=== PATIENT | female | born 1995 | race Two or more races ===

== ENCOUNTER 2024-08-14 15:56 | Day surgery (SDC) | payer BC ==
[2024-08-14 16:24] VITALS: BMI 39.4
== END 2024-08-14 17:30 | disposition home or self-care (01) ==
LOC: CSHLD/OP 15:56
PROVIDERS: ATTEND Obstetrics & Gynecology
DX: O41.03X0 Oligohydramnios, third trimester, not applicable or unspecified (principal); Z3A.35 35 weeks gestation of pregnancy
CPT/HCPCS: 96360; 99282

== ENCOUNTER 2024-08-23 11:43 | Inpatient (IN) | payer BC, OTHER ==
[2024-08-23] MEDS ORDERED: hydrALAZINE 20 MG/ML VIAL SLOW IVP PRN (12:37)
[2024-08-23] MEDS ORDERED: Diphenoxylate HCl/Atropine Tablet PO PRN (14:35)
[2024-08-23] MEDS ORDERED: Methylergonovine 0.2 MG/ML VIAL IM PRN (14:35)
[2024-08-23] MEDS ORDERED: fentaNYL 50 mcg/mL 1 mL Vial SLOW IVP PRN (14:35)
[2024-08-23] MEDS ORDERED: Carboprost 250 MCG/ML AMP IM PRN (14:35)
[2024-08-23] MEDS ORDERED: Lidocaine 1% (PF) 30 ML VIAL SC PRN (14:47)
[2024-08-23 17:16] VITALS: BMI 39.7
[2024-08-23 17:26] LABS: Hematocrit 31.2 % (34.9-44.5); Hemoglobin 10.3 g/dL (12.0-15.5); Mean Corpuscular Hemoglobin 30.4 pg (27.0-33.0); Mean Platelet Volume 10.2 fL (7.4-10.4); Platelet Count 208 10x3/uL (150-450); Red Blood Cell (RBC) Count 3.39 10x6/uL (3.90-5.03); White Blood Cell (WBC) Count 9.9 10x3/uL (3.5-10.5)
[2024-08-23 17:48] LABS: HBsAg Index 0.22 S/CO (0-0.99); Hep B Surf Ag - L&D Non-Reactive S/CO (NonReactive)
[2024-08-23 17:49] LABS: Syphilis Antibody Nonreactive (Nonreactive); Syphilis Antibody Index 0.06 S/CO (<1.00 Non-Reactive)
[2024-08-23] MEDS: Penicillin G Potassium 5 MILL.UNITS in Sodium Chloride 0.9% 100 ML IVPB SCH (23:09)
[2024-08-24] MEDS: Misoprostol 100 MCG TAB VAG SCH (02:59)
[2024-08-24] MEDS: Penicillin G 2.5 MILL.units 2.5 MILL.UNITS in Premix 1 BAG IVPB SCH (03:08)
[2024-08-24] MEDS: Oxytocin 30 units/NS 500 ML 500 ML IV SCH ×2 (07:08→17:27)
[2024-08-24] MEDS ORDERED: ePHEDrine Sulfate 50 MG/10 ML VIAL SLOW IVP PRN (07:20)
[2024-08-24] MEDS ORDERED: Acetaminophen 325 MG TAB PO PRN (07:20)
[2024-08-24] MEDS ORDERED: diphenhydrAMINE 50 MG/ML VIAL IVP PRN (07:20)
[2024-08-24] MEDS ORDERED: Naloxone HCl 0.4 mg/ml Vial IVP PRN ×2 (07:20)
[2024-08-24] MEDS ORDERED: Lactated Ringer's 500 ML IV PRN (07:20)
[2024-08-24] MEDS ORDERED: Ondansetron PF 4 MG/2 ML Vial IVP PRN ×2 (07:20→17:53)
[2024-08-24] MEDS ORDERED: Moisturizing Cream (Eucerin) 113 GM JAR TOP PRN (07:20)
[2024-08-24] MEDS ORDERED: Promethazine HCl 25 MG/ML VIAL IM PRN ×2 (07:20→17:53)
[2024-08-24] MEDS ORDERED: Active EPIDURAL FS SCH (07:30)
[2024-08-24] MEDS: Lactated Ringer's 1,000 ML IV SCH (07:52)
[2024-08-24] MEDS: fentaNYL 2 mcg/Ropivacaine 0.2% Epidural 100 ML CADD EPIDURAL SCH (07:58)
[2024-08-24] MEDS: Ondansetron PF 4 MG/2 ML Vial IVP PRN (12:04)
[2024-08-24] MEDS ORDERED: Bupivacaine 0.25% HCL 30 ML VIAL ONE (15:00)
[2024-08-24] MEDS: Misoprostol 200 MCG TAB PR PRN (17:20)
[2024-08-24] MEDS: Tranexamic Acid 1,000 MG/10 ML VIAL IVP PRN (17:27)
[2024-08-24] MEDS ORDERED: Milk Of Magnesia 30 ML UDCUP PO PRN (17:53)
[2024-08-24] MEDS ORDERED: Benzocaine-Menthol 82.5 ML CAN TOP PRN (17:53)
[2024-08-24] MEDS ORDERED: Lanolin Ointment 7 GM TUBE TOP PRN (17:53)
[2024-08-24] MEDS ORDERED: diphenhydrAMINE 25 MG CAP PO PRN (17:53)
[2024-08-24] MEDS ORDERED: Bisacodyl 10 MG SUPP PR PRN (17:53)
[2024-08-24] MEDS ORDERED: hydrALAZINE 20 MG/ML VIAL SLOW IVP PRN (17:53)
[2024-08-24] MEDS ORDERED: Preparation H Ointment 28 GM TUBE PR PRN (17:53)
[2024-08-24] MEDS: Penicillin G Potassium 5 MILL.UNITS VIAL ONE (22:20)
[2024-08-24] MEDS: fentaNYL/Ropivacaine Epidural 100 ML ONE (22:20)
[2024-08-24] MEDS: Docusate 100 MG CAP PO SCH (22:30)
[2024-08-24] MEDS: Ibuprofen 800 MG TAB PO SCH (22:31)
[2024-08-24] MEDS: Boostrix 0.5 ML (Tdap) VIAL (>/=7 yrs of age) IM ONE (22:33)
[2024-08-25] MEDS: traMADol HCl 50 MG TAB PO PRN (00:46)
[2024-08-25] MEDS ORDERED: Diphenoxylate HCl/Atropine Tablet PO PRN (07:15)
[2024-08-25] MEDS ORDERED: BIKTARVY PO SCH (09:00)
[2024-08-26 08:29] VITALS: TEMP 99
[2024-08-26 09:41] VITALS: BP 124/85
== END 2024-08-26 14:15 | disposition home or self-care (01) | DRG 806 ==
LOC: CSHLD/OP 11:43 → CSHLD 15:05 → CSHPED 08-24 21:32
PROVIDERS: ADMIT Obstetrics & Gynecology; ATTEND Obstetrics & Gynecology
PROC: 10E0XZZ Delivery of Products of Conception, External Approach (ICD-10-PCS; principal; 2024-08-24)
PROC: 10907ZC Drainage of Amniotic Fluid, Therapeutic from Products of Conception, Via Natural or Artificial Opening (ICD-10-PCS; 2024-08-24)
DX: O41.03X0 Oligohydramnios, third trimester, not applicable or unspecified (principal); O98.72 Human immunodeficiency virus [HIV] disease complicating childbirth; Z37.0 Single live birth; Z3A.36 36 weeks gestation of pregnancy; Z21 Asymptomatic human immunodeficiency virus [HIV] infection status; Z79.899 Other long term (current) drug therapy
CPT/HCPCS: 36416; 51702; 76819; 85027; 86780; 86850; 86900; 86901; 87340; 99285; J0665; J2405; J2540; J2590; J7120